=== PATIENT | female | born 1960 | race African-American/Black ===

== ENCOUNTER 2016-12-27 13:22 | Inpatient (IN) ==
[2016-12-27] MEDS ORDERED: DUONEB (A & A) INH ONE (14:39)
[2016-12-27] MEDS ORDERED: SOLU-MEDROL 0 MG in NS 100 ML IV ONE (14:41)
[2016-12-27 14:57] LABS: URINE MICRO REVIEW NEEDED? NO; URINE SOURCE CLEAN CATCH
[2016-12-27 15:02] LABS: BILIRUBIN URINE NEGATIVE (NEGATIVE); BLOOD URINE NEGATIVE (NEGATIVE); COLOR YELLOW; GLUCOSE URINE NEGATIVE (NEGATIVE); LEUKOCYTES URINE MODERATE (NEGATIVE); NITRITE URINE NEGATIVE (NEGATIVE); PH URINE 6.5; PROTEIN URINE NEGATIVE (NEGATIVE); TURBIDITY URINE HAZY (CLEAR); UROBILINOGEN URINE NORMAL (NORMAL)
[2016-12-27 15:04] LABS: UR EPITHELIAL CELLS >10 /HPF (<10); URINE BACTERIA 2+ /HPF; URINE CULTURE NEEDED? YES; URINE RBC <10 /HPF (<10)
--- NOTE | 2016-12-27 15:04 | Diag Imaging Result Doc PS360 ---
CHEST-2 VIEWS - 12/27/2016 INDICATION: wheezing TECHNIQUE: COMPARISON: 08/07/2016 FINDINGS: There are extremely extensive calcified mediastinal lymph nodes stable from prior. Stable minimal peripheral fibrosis or scarring in the lung bases. No focal infiltrates, pneumothorax, or pleural effusion. Heart size remains normal. IMPRESSION: No acute disease or change from prior. 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 Electronically signed by Tamir Sweeney 12/27/2016 3:02 PM
[2016-12-27] MEDS ORDERED: SOLU-MEDROL IV ONE (15:26)
[2016-12-27 15:37] LABS: MANUAL DIFF NEEDED? NO
[2016-12-27 15:46] LABS: BASO% 0.2 % (0.0-0.8); HEMATOCRIT 41.6 % (37.0-47.0); HEMOGLOBIN 13.4 g/dL (12.0-16.0); IMM GRAN# 0.14 X1000 (0.0-0.04); IMM GRAN% 1.4 % (0.0-0.5); LYMPH# 2.06 X1000 (1.2-3.4); LYMPH% 19.9 % (20.5-51.1); MCH 27.2 PG (27-31); MCHC 32.2 g/dL (33-37); MCV 84.6 FL (81-99); MONO# 0.19 X1000 (0.11-0.59); MONO% 1.8 % (1.7-9.3); MPV 9.4 FL (7.4-10.4); NEUT% 76.7 % (42.2-75.2); PLT 299 X1000 (130-400); RBC 4.92 XMIL (4.2-5.4)
[2016-12-27 16:05] LABS: AGAP 13; ALBUMIN 4.4 g/dL (3.5-5.0); ALKALINE PHOSPHATASE 76 U/L (32-104); BUN 19 mg/dL (8-22); CALCIUM 9.8 mg/dL (8.8-10.2); CHLORIDE 102 mmol/L (98-107); COSMO 281; GOT 14 U/L (10-30); GPT 18 U/L (10-36); POTASSIUM 4.7 mmol/L (3.5-5.1); SODIUM 139 mmol/L (136-145); TCO2 24 mmol/L (25-35); TOTAL PROTEIN 7.1 g/dL (6.3-8.3)
--- NOTE | 2016-12-27 16:38 | PROVIDER DOCUMENTATION ---
This chart was entered by Cesar Oscar Scribe, acting as scribe for Tom Garcia MD. HPI-General Adult - General Chief Complaint: Flank Pain Stated Complaint: LT SIDE ABDOMINAL PAIN Time Seen by Provider: 12/27/16 14:31 Source: patient Allergies/Adverse Reactions: Patient Allergies Allergy/AdvReac Type Severity Reaction Status Date / Time No Known Allergies Allergy Verified 12/27/16 14:53 Home Medications: Home Medication List Medication Instructions Recorded Confirmed Last Taken Type Albuterol Sulfate 2.5 mg IH TID 01/27/12 12/27/16 12/26/16 18:00 History Fluticasone/Salmeterol [Advair Hfa 2 puff IH BID 01/27/12 12/27/16 12/27/16 08: 00 History 230-21 Mcg Inhaler] Folic Acid 1 mg PO DAILY 01/27/12 12/27/16 12/27/16 08:00 History Montelukast [Singulair] 10 mg PO DAILY 01/27/12 12/27/16 12/27/16 08:00 History Multivitamin with Minerals 1 each PO DAILY 01/27/12 12/27/16 12/27/16 08:00 History [Multivitamins with Minerals] Prednisone 5 mg PO DAILY 01/27/12 12/27/16 12/27/16 08:00 History Ramipril [Altace] 10 mg PO DAILY 01/27/12 12/27/16 12/27/16 08:00 History Ranitidine HCl [Zantac] 300 mg PO HS 01/27/12 12/27/16 12/26/16 20:00 History Simvastatin 40 mg PO HS 01/27/12 12/27/16 12/26/16 20:00 History Albuterol Sulfate [Proair 90 mcg IH DAILY 12/27/16 12/27/16 12/27/16 08:00 History Respiclick] Aspirin 81 mg PO DAILY 12/27/16 12/27/16 12/27/16 08:00 History Citalopram Hydrobromide [Celexa] 20 mg PO DAILY 12/27/16 12/27/16 12/27/16 08: 00 History Mometasone Nasal [place] [Nasonex 1 spray STONE DAILY 12/27/16 12/27/16 12/27/16 08: 00 History Nasal Clymer] - History of Present Illness -Gen Adult Nature of Presenting Problems: Patient is a 56 y/o F that presents to the ER with left flank pain x "few days" . Patient reports no N/V/D, fever/chills, or dysuria. patient reports being placed on steroids recently due to Asthma exacerbation. patient doesn't know if the steroids are causing her flank pain. Location of Pain/Injury: reports: abdomen (Left Flank) Pain Radiation: reports: no radiation Quality of Pain: reports: sharp Severity: reports: moderate Onset/Duration: reports: abrupt, other ("few days") Timing: reports: still present, getting worse (this afternoon) Context/Activities at Onset: reports: other (recent asthma exacerbation) Modifying Factors: worse with: exercise Associated Symptoms: reports: shortness of breath. denies: back/neck pain, diaphoresis, diarrhea, EENT symptoms, fever/chills, genitourinary problems, nausea, vomiting, weakness Similar Symptoms Previously?: No Recently seen or treated by another doctor?: Yes Review of Systems - Adult - REVIEW OF SYSTEMS - ADULT Constitutional: denies: chills, fever Eyes: reports: no symptoms reported Ears, Nose, Mouth & Throat: reports: no symptoms reported Cardiovascular: denies: chest pain, orthopnea, palpitations, syncope Respiratory: reports: dyspnea on exertion, shortness of breath, wheezing Gastrointestinal: reports: abdominal pain. denies: diarrhea, nausea, vomiting Genitourinary: reports: flank pain (left). denies: dysuria, frequency, hematuria Musculoskeletal: reports: no symptoms reported Integumentary: reports: no symptoms reported Neurological: reports: no symptoms reported Psychiatric: reports: no symptoms reported Endocrine: reports: no symptoms reported Hematologic/Lymphatic: reports: no symptoms reported Allergic/Immunologic: reports: no symptoms reported All Other Systems: Reviewed and Negative Past History - Adult - PAST MEDICAL HISTORY-ADULT Review of Records: reports: Old Records Reviewed, Nursing Assessment Review, Medications Reviewed Cardiovascular: reports: HTN Respiratory: reports: asthma, COPD - PRIOR SURGERIES/PROCEDURES Surgical/Procedure History: reports: hysterectomy - IMMUNIZATION STATUS Childhood Immunizations: See Nurse Assessment Flu Vaccine: See Nurse Assessment - FAMILY HISTORY Family History: reviewed, not pertinent - SOCIAL HISTORY Smoking: non-smoker Living Situation: family Physical Exam-General - PHYSICAL EXAM-ADULT Initial Vital Signs Reviewed: Yes - CONSTITUTIONAL General Appearance: alert, mild distress, anxious - EYES Eyes: PERRL/EOMI, pink conjunctivae - HEAD, EARS, NOSE, MOUTH & THROAT HENMT: normocephalic/atraumatic, moist mucous membranes, normal ENT inspection - NECK Neck: full range of motion, normal inspection. negative: lymphadenopathy - RESPIRATORY Respiratory: no respiratory distress, no accessory muscle use, wheezing ( throughout bilateral) - CARDIOVASCULAR Cardiovascular: regular rate, rhythm, no edema, no murmur - GASTROINTESTINAL (ABDOMEN) Abdominal Exam: normal bowel sounds, soft, no organomegaly, no pulsatile mass, tenderness (Left flank) - MUSCULOSKELETAL Back Exam: no CVA tenderness, no vertebral tenderness Extremity: normal range of motion, normal inspection, no pedal edema - SKIN Integumentary: normal color, warm/dry - NEUROLOGIC Neurologic: grossly normal, no motor/sensory deficits - PSYCHIATRIC Psych/Mental Status: normal mood/affect, normal thought content, normal thought process, oriented x 3 Progress - PLAN OF CARE/RESULTS Progress/Plan/Lab Results: Vital Signs - 8 hr 12/27/16 13:35 Temperature 98.1 F Pulse Rate 81 Respiratory Rate 18 Blood Pressure 142/77 O2 Sat by Pulse Oximetry 96 Orders Category Date Time Status UA NIMS W/REFLEX CULT [URINALYSIS] Stat Lab 12/27/16 13:53 Uncollected Result Diagrams: 12/27/16 15:08 12/27/16 15:08 - XRAY 1 XRAY Study: Chest Impression: Abnormal XRAY Interpretation: nad, chronic changes - CONSULTS/PCP/HOSPITALIST Notification #1 *Consult/PCP/Hospitalist*: Rodolfo with hospitalist Time Discussed: 16:14 Reason/Comments: , asthmatic bronchitis, uti Consult Disposition: Will see in ED, Admit Departure - Departure Date of Disposition Decision: 12/27/16 Time of Disposition Decision: 16:15 DIAGNOSIS: Sarcoidosis UTI (urinary tract infection) Qualifiers: Urinary tract infection type: acute cystitis Hematuria presence: without hematuria Qualified Code(s): N30.00 - Acute cystitis without hematuria Asthmatic bronchitis Qualifiers: Asthma severity: moderate Asthma persistence: persistent Asthma complication type: with acute exacerbation Qualified Code(s): J45.41 - Moderate persistent asthma with (acute) exacerbation Dyspnea Qualifiers: Dyspnea type: dyspnea on exertion Qualified Code(s): R06.09 - Other forms of dyspnea Disposition: ADMITTED INPATIENT Certified Medical Emergency: Emergent Condition: Stable Referrals and Follow-Ups: Jc Elizabeth [Primary Care Provider] - - Critical Care Note This patient required my direct & personal management of CC.: No Attestation - Physician/ CAR Attestation The physician spent face to face time with patient:: Yes Advanced Practice Provider documentation review:: Supervising physician onsite and consulted in the evaluation and care of this patient. The physician did have a face to face encounter with the patient. This chart was documented by the indicated scribe, (Cesar Oscar, Scribe) and accurately reflects the services I performed and decisions made by me, Tom Garcia MD, as attested by the provider's signature.
[2016-12-27] MEDS ORDERED: DUONEB (A & A) INH PRN (16:54)
[2016-12-27] MEDS: SOLU-MEDROL IV SCH (17:00)
--- NOTE | 2016-12-27 17:26 | HISTORY AND PHYSICAL ---
PRIMARY CARE PHYSICIAN: Dr. Jc Pérez CHIEF COMPLAINT: Left flank pain and shortness of breath. HISTORY OF PRESENT ILLNESS: Mrs. Blackwood is a 56-year-old female with a history of asthma, sarcoidosis, hypertension and hyperlipidemia, who presents with 2-3 days of left flank pain. This is not associated with nausea, vomiting, or diarrhea. There is no fevers or chills. There is no dysuria. She has also been wheezing and progressively short of breath with cough and green sputum production. She came to the ER today for her left flank pain. Labs and diagnostics were done. There is questionable UTI. Chest x-ray is negative. Otherwise labs are largely unremarkable. Despite steroid and DuoNeb therapy the patient continues to wheeze and be short of breath, so the decision was made to admit her for further treatment and evaluation. PAST MEDICAL HISTORY: 1. Asthma. 2. Sarcoidosis. 3. Hypertension. 4. Hyperlipidemia. 5. Obstructive sleep apnea with CPAP at night. SURGICAL HISTORY: She has had a lung biopsy, partial hysterectomy, bladder tacking. SOCIAL HISTORY: She denies tobacco, alcohol or drug use. She is a . FAMILY HISTORY: Noncontributory. REVIEW OF SYSTEMS: Fourteen-point review of systems obtained and found to be negative with the exception of the HPI. ALLERGIES: No known drug allergies. HOME MEDICATIONS: Albuterol as directed, aspirin 81 mg daily, citalopram 20 mg daily, Advair as directed, folic acid 1 mg daily, Nasonex 1 spray daily, Singulair 10 mg daily, multivitamin 1 daily, prednisone 5 mg daily, Altace 10 mg daily, Zantac 300 mg p.o. at bedtime , simvastatin 40 mg at bedtime. PHYSICAL EXAMINATION: VITAL SIGNS: Blood pressure is 147/88, heart rate 79, respiratory rate 22, O2 saturation 99% on room air. Temperature is 98.1 degrees. GENERAL: This is a well-developed, well-nourished, female, lying in hospital bed, in no acute distress. NEUROLOGIC: Awake, alert, and oriented. She follows commands without focal deficits. HEENT: Head is atraumatic and normocephalic. Her pupils are equal, round, reactive to light. Oral mucosa is a bit dry. Trachea is midline. No JVD. CHEST: Intense wheezing bilaterally. CV: Regular rate and rhythm. S1-S2 is noted. GI: Soft, nondistended, nontender. Bowel sounds are positive. There is left CVA tenderness to palpation. EXTREMITIES: Bilateral lower extremity without edema, clubbing or cyanosis. DIAGNOSTIC DATA: Chest x-ray is negative. There is extensive old calcified mediastinal granulomas which could indicate fibrosing mediastinitis, but this is stable from prior. WBC 10.3, hemoglobin 13.4, hematocrit 41.6, platelet count 299,000. Sodium 139, potassium 4.7, chloride 102, CO2 24, anion gap 13, BUN 19, creatinine 0.9, glucose 112. LFTs within normal limits. Albumin 4.4. UA shows probable UTI. ASSESSMENT AND PLAN: 1. Asthma exacerbation: We will continue oxygen, steroids, nebulizers, and add Rocephin as she has had some green sputum production. Monitor her pulse and respiratory status closely. 2. Left flank pain: Probable pyelonephritis, we are going to add a CT renal stone search, add Rocephin and IV fluids. 3. Sarcoidosis: Overall stable. Please see #1. 4. Hypertension: Chronic and stable, continue home medications. 5. Deep vein thrombosis prophylaxis with Lovenox. Further recommendations to follow. Patient seen and examined by me face to face, all the lab work, vitals signs, images were reviewed, Patient has a past medical history of sarcoidosis and she has been having asthma which is chronic on and off, she used top smoke but she stopped long time ago, on my physical exam she is wheezing but after the first round of treatment she feels better, I agree with the assessment and plan, Oscar Díaz MD Dictated by DONTE Bennett for Oscar Sandoval MD cc: DONTE Bennett MD Dr. William Rudolf MTDD
[2016-12-27] MEDS: ROCEPHIN 1 GM in NS 50 ML IV SCH (17:42)
--- NOTE | 2016-12-27 18:12 | Diag Imaging Result Doc PS360 ---
CT RENAL STONE SEARCH - 12/27/2016 INDICATION: left flank pain, ?pyelo TECHNIQUE: A CT dose reduction protocol was used. COMPARISON: None FINDINGS: No radiodense renal stones. No hydronephrosis or hydroureter. No bowel obstruction or inflammation. There are numerous diverticula of the descending and sigmoid colon. Uterus is absent. Urinary bladder and rectum are normal. There are moderate degenerative changes of the spine. No acute or suspicious bony lesion. IMPRESSION: No acute disease. Diverticulosis coli. Electronically signed by Tamir Sweeney 12/27/2016 6:09 PM
[2016-12-27] MEDS: NS 1,000 ML IV SCH (18:30)
[2016-12-27] MEDS ORDERED: NS 50 ML ONE (18:30)
[2016-12-27] MEDS: DUONEB (A & A) INH SCH ×2 (19:36→23:46)
[2016-12-27] MEDS: ZANTAC PO SCH (20:46)
[2016-12-27] MEDS: ZOCOR PO SCH (20:46)
[2016-12-27] MEDS ORDERED: SALMETEROL IH SCH (21:00)
[2016-12-27] MEDS ORDERED: FLUTICASONE IH SCH (21:00)
[2016-12-27] MEDS ORDERED: NON-FORMULARY BULK MED INH SCH (21:00)
[2016-12-28] MEDS: TYLENOL PO PRN (00:38)
[2016-12-28] MEDS: SOLU-MEDROL IV SCH ×3 (00:38→18:02)
[2016-12-28] MEDS: NS 1,000 ML IV SCH (03:41)
[2016-12-28] MEDS: DUONEB (A & A) INH SCH ×6 (03:41→22:59)
[2016-12-28 06:19] LABS: HEMATOCRIT 39.5 % (37.0-47.0); HEMOGLOBIN 12.7 g/dL (12.0-16.0); MCH 26.9 PG (27-31); MCHC 32.2 g/dL (33-37); MCV 83.7 FL (81-99); MPV 9.2 FL (7.4-10.4); RBC 4.72 XMIL (4.2-5.4)
[2016-12-28 06:57] LABS: AGAP 12; BUN 17 mg/dL (8-22); CALCIUM 9.4 mg/dL (8.8-10.2); CHLORIDE 101 mmol/L (98-107); COSMO 277; POTASSIUM 4.6 mmol/L (3.5-5.1); SODIUM 137 mmol/L (136-145); TCO2 25 mmol/L (25-35)
[2016-12-28] MEDS: FLONASE NAS SCH (08:38)
[2016-12-28] MEDS: SINGULAIR PO SCH (08:39)
[2016-12-28] MEDS: LOVENOX SUBQ SCH (08:39)
[2016-12-28] MEDS: ASPIRIN PO SCH (08:39)
[2016-12-28] MEDS: CELEXA PO SCH (08:39)
[2016-12-28] MEDS: THERA M PLUS PO SCH (08:39)
[2016-12-28] MEDS: FOLIC ACID PO SCH (08:39)
[2016-12-28] MEDS: ALTACE PO SCH (08:50)
[2016-12-28] MEDS ORDERED: ALTACE PO SCH (09:00)
[2016-12-28] MEDS ORDERED: NASONEX NASAL SPRAY NAS SCH (09:00)
[2016-12-28] MEDS: ROCEPHIN 1 GM in NS 50 ML IV SCH (18:02)
[2016-12-28] MEDS: ZOCOR PO SCH (20:08)
[2016-12-28] MEDS: ZANTAC PO SCH (20:08)
--- NOTE | 2016-12-28 21:06 | PROGRESS NOTE ---
DATE: 12/28/2016 SUBJECTIVE: Patient notes that she is feeling a lot better today. Denies any current chest pains or palpitations. States that she is still having some shortness of breath, but overall feels improved from her admission status. Denies any GI or issues. OBJECTIVE: Vital Signs: Reviewed. Temperature 98.2 degrees, pulse 79, respiratory 20, blood pressure 152/63. General: Patient is awake, alert, currently in no respiratory distress. Neck: Supple. CARDIOVASCULAR: Regular rate. Chest: Decreased breath sounds, but equal bilaterally. Positive wheezing. No crackles. Abdomen: Soft. Extremities: Moves all extremities. ASSESSMENT: 1. Chronic obstructive pulmonary disease with mild exacerbation. 2. Left flank pain. Questionable pyelonephritis. 3. Sarcoidosis. 4. Hypertension. PLAN: We will keep patient on Solu-Medrol 60 q.8. Keep her on Rocephin given that although she is improved, this is only slightly. We will continue to follow. Further orders as needed. Expect she will be in the hospital a few more days. cc: Luis Ward MD
[2016-12-29] MEDS: SOLU-MEDROL IV SCH ×2 (00:49→13:11)
[2016-12-29] MEDS: NS 1,000 ML IV SCH ×2 (00:49→13:11)
[2016-12-29] MEDS: DUONEB (A & A) INH SCH ×6 (04:00→22:30)
[2016-12-29 05:24] LABS: HEMATOCRIT 38.5 % (37.0-47.0); HEMOGLOBIN 11.9 g/dL (12.0-16.0); MCHC 30.9 g/dL (33-37); MCV 84.1 FL (81-99); RBC 4.58 XMIL (4.2-5.4)
[2016-12-29 05:54] LABS: AGAP 8; BUN 14 mg/dL (8-22); CALCIUM 9.5 mg/dL (8.8-10.2); CHLORIDE 106 mmol/L (98-107); COSMO 283; MAGNESIUM 2.2 mg/dL (1.5-2.7); POTASSIUM 4.2 mmol/L (3.5-5.1); SODIUM 140 mmol/L (136-145); TCO2 25 mmol/L (25-35)
[2016-12-29] MEDS: TYLENOL PO PRN ×2 (07:55→18:14)
[2016-12-29] MEDS: FLONASE NAS SCH (09:38)
[2016-12-29] MEDS: ALTACE PO SCH (09:38)
[2016-12-29] MEDS: ASPIRIN PO SCH (09:39)
[2016-12-29] MEDS: LOVENOX SUBQ SCH (09:39)
[2016-12-29] MEDS: CELEXA PO SCH (09:40)
[2016-12-29] MEDS: FOLIC ACID PO SCH (09:40)
[2016-12-29] MEDS: SINGULAIR PO SCH (09:40)
[2016-12-29] MEDS: THERA M PLUS PO SCH (09:40)
--- NOTE | 2016-12-29 11:25 | Diag Imaging Result Doc PS360 ---
EXAM: CHEST-2 VIEWS HISTORY: decreased breath sounds TECHNIQUE: Two views COMPARISON: 12/27/2016 FINDINGS: The lungs are well expanded. The heart is not enlarged. The vessels are not distended. There are no infiltrates. No pleural effusions. There are many calcified mediastinal and hilar lymph nodes. These were present on the prior exam. IMPRESSION: No acute abnormality. Electronically signed by David Lilly 12/29/2016 11:23 AM
[2016-12-29] MEDS: ROCEPHIN 1 GM in NS 50 ML IV SCH (16:24)
[2016-12-29] MEDS: ZOCOR PO SCH (21:25)
[2016-12-29] MEDS: ZANTAC PO SCH (21:25)
[2016-12-30] MEDS: SOLU-MEDROL IV SCH (00:30)
[2016-12-30] MEDS: DUONEB (A & A) INH SCH ×3 (03:15→17:55)
[2016-12-30] MEDS: NS 1,000 ML IV SCH (03:23)
--- NOTE | 2016-12-30 05:35 | PROGRESS NOTE ---
DATE: 12/29/2016 ADDENDUM REPORT: SUBJECTIVE: Patient notes that she is feeling tremendously better. Still having some wheezing and coughing . Otherwise she denies any issues currently. PHYSICAL EXAMINATION: Vital Signs: Temp 98.1, pulse 82, respiratory 16, BP 171/81. General: Patient was seen and examined. Full note dictated by nurse practitioner. Patient is awake, alert. She is in no respiratory distress. She is currently lying flat in the bed. HEENT: Normocephalic, atraumatic. BRIANNE. Neck: Supple. Cardiovascular: Regular rate. Decreased breath sounds bilaterally. cc: Luis Ward MD
[2016-12-30 05:54] LABS: HEMATOCRIT 38.7 % (37.0-47.0); HEMOGLOBIN 12.2 g/dL (12.0-16.0); MCH 26.6 PG (27-31); MCHC 31.5 g/dL (33-37); MCV 84.3 FL (81-99); MPV 8.7 FL (7.4-10.4); RBC 4.59 XMIL (4.2-5.4)
[2016-12-30 06:05] LABS: AGAP 7; BUN 13 mg/dL (8-22); CALCIUM 9.3 mg/dL (8.8-10.2); CHLORIDE 102 mmol/L (98-107); COSMO 275; POTASSIUM 4.1 mmol/L (3.5-5.1); SODIUM 137 mmol/L (136-145); TCO2 28 mmol/L (25-35)
[2016-12-30] MEDS: FOLIC ACID PO SCH (08:33)
[2016-12-30] MEDS: THERA M PLUS PO SCH (08:33)
[2016-12-30] MEDS: LOVENOX SUBQ SCH (08:33)
[2016-12-30] MEDS: SINGULAIR PO SCH (08:33)
[2016-12-30] MEDS: ASPIRIN PO SCH (08:33)
[2016-12-30] MEDS: ALTACE PO SCH (08:33)
[2016-12-30] MEDS: CELEXA PO SCH (08:33)
[2016-12-30] MEDS: FLONASE NAS SCH (08:34)
[2016-12-30 12:01] VITALS: BP 180/77
--- NOTE | 2016-12-31 05:46 | DISCHARGE SUMMARY ---
ADMISSION DATE: 12/27/2016 DISCHARGE DATE: 12/30/2016 DIAGNOSES: 1. Asthma exacerbation. 2. Left flank pain, resolved. 3. Sarcoidosis, stable. 4. Hypertension. DIAGNOSTICS: 1. 12/27/2016 chest x-ray, no acute disease. 2. 12/29/2016 chest x-ray revealed no acute abnormality. MICROBIOLOGY: Urine culture revealed no growth. HOSPITAL COURSE: Ms Blackwood presented to the hospital complaining of left flank pain that had been present 2-3 days with no accompanying symptoms as well as wheezing and dyspnea on exertion which she felt was an asthma exacerbation. She was treated with DuoNeb q.4 with q.2 p.r.n., incentive spirometer, steroids to taper. We did continue her home medications as appropriate. Thankfully she did improve and stated that she is back to her normal. Respiratory colmneares, she denied any shortness of breath or dyspnea on exertion, PND or orthopnea. She did have some left flank pain and urinalysis appeared to have contamination with greater than 10 epithelial cells and 10-20 white blood cells. She was placed on antibiotics prophylactically and urine culture did return with no growth. Her left flank pain did resolve just after discharge. She remains afebrile. White counts did increase which this is most likely secondary to steroids. DISCHARGE PHYSICAL EXAMINATION: Cardiovascular: Regular rate and rhythm. S1 and S2 appreciated. Pulmonary: Breath sounds are clear with no increased work of breathing noted. Gastrointestinal: Abdomen is soft, nontender, nondistended with bowel sounds in all 4 quadrants. Neurologic: She is alert and orient x3 with cranial nerves 2-12 grossly intact. Discharge Vital Signs: Blood pressure is in the 160-180s/70s-80s, heart rate 74, temperature is 97.7 degrees with respirations 16-18 range, room air saturations 97-98%. DISCHARGE MEDICATION: 1. Simvastatin 40 at bedtime. 2. Zantac 300 at bedtime. 3. Altace 10 daily. 4. Multivitamins daily. 5. Singular 10 daily. 6. Nasonex 1 spray daily. 7. Folic acid 1 mg daily. 8. Advair 2 puffs b.i.d. 9. Celexa 20 mg daily. 10. Aspirin 81 mg daily. 11. Medrol Dosepak as directed. 12. Augmentin 1 b.i.d. for 7 days. 13. DuoNebs q.4 hours with q.2 p.r.n. FOLLOW UP: She is to follow up with her primary care provider in a week or sooner if needed. DISPOSITION: She is being discharged home in stable condition with family members. TIME: This is a greater than 30 minute discharge. Dictated by DONTE Mccann for Luis Ward MD cc: DONTE Mccann MD
== END 2016-12-30 14:05 | disposition home or self-care (01) ==
LOC: ED 13:22 → EDIPHOLD 16:48 → SUATTDRO 16:48 → P.MEDSURG 18:50
PROVIDERS: ATTEND Family Medicine